=== PATIENT | female | born 1970 | race Caucasian/White ===

== ENCOUNTER 2017-09-28 08:47 | Emergency (ER) | payer OTHER ==
[~2017-09-28] VITALS: Ht 170.2 cm; Wt 86.2 kg
[~2017-09-28 08:47] MED LIST: CEFDINIR300 MG PO; KETOROLAC TROME10 MG PO; ZOFRAN4 MG PO
[2017-09-28] MEDS ORDERED: PREDNISONE 20 MG TAB PO ONE (09:45)
[2017-09-28] MEDS ORDERED: KETOROLAC TROMETHAMINE 60 MG/2 ML VIAL IM ONE (09:45)
[2017-09-28 10:40] VITALS: BP 137/82
== END 2017-09-28 10:42 | disposition home or self-care (01) ==
LOC: FSED 08:47
DX: S50.02XA Contusion of left elbow, initial encounter (principal); S60.212A Contusion of left wrist, initial encounter; W22.09XA Striking against other stationary object, initial encounter; Y92.008 Other place in unspecified non-institutional (private) residence as the place of occurrence of the external cause
CPT/HCPCS: 73080; 73110; 99283; J1885

== ENCOUNTER 2019-03-09 10:29 | Emergency (ER) | payer OTHER ==
[~2019-03-09] VITALS: Ht 167.6 cm; Wt 90.7 kg
[2019-03-09] MEDS ORDERED: KETOROLAC TROMETHAMINE 30 MG/ML VIAL IM STA (11:00)
[2019-03-09 12:37] VITALS: BP 128/68
== END 2019-03-09 12:39 | disposition home or self-care (01) ==
LOC: FSED 10:29
DX: G44.211 Episodic tension-type headache, intractable (principal); I10 Essential (primary) hypertension
CPT/HCPCS: 80048; 80076; 85025; 99283; J1885

== ENCOUNTER 2022-02-14 08:03 | Emergency (ER) | payer OTHER ==
[~2022-02-14] VITALS: Ht 167.6 cm; Wt 91.0 kg
[2022-02-14] MEDS ORDERED: LISINOPRIL10 MG PO (08:22)
[2022-02-14] MEDS ORDERED: ACETAMINOPHEN 325 MG TAB PO ONE (08:30)
[2022-02-14] MEDS ORDERED: IBUPROFEN 600 MG TAB PO ONE (08:30)
[2022-02-14] MEDS ORDERED: DEXAMETHASONE SOD PHOS INJ 4 MG/ML SDV IM ONE (08:30)
[2022-02-14] MEDS ORDERED: DEXAMETHASONE SOD PHOS INJ 4 MG/ML SDV ONE (08:46)
[2022-02-14] MEDS ORDERED: IBUPROFEN 600 MG TAB ONE (08:47)
[2022-02-14] MEDS ORDERED: PREDNISONE50 MG PO (09:25)
[2022-02-14] MEDS ORDERED: IBUPROFEN200 MG PO (09:25)
[2022-02-14] MEDS ORDERED: ZANAFLEX4 MG PO (09:25)
[2022-02-14] MEDS ORDERED: ACETAMINOPHEN500 MG PO (09:25)
[2022-02-14] MEDS ORDERED: HYDROCODONE/APAP 5MG-325MG TAB PO ONE (09:30)
== END 2022-02-14 09:56 | disposition home or self-care (01) ==
LOC: FSED 08:28
DX: M54.41 Lumbago with sciatica, right side (principal); I10 Essential (primary) hypertension
CPT/HCPCS: 72131; 96372; 99283; J1100

== ENCOUNTER 2022-03-26 16:18 | Observation (INO) | payer OTHER ==
[~2022-03-26] VITALS: Ht 167.6 cm; Wt 97.1 kg
[~2022-03-26 16:18] MED LIST changes: +ACETAMINOPHEN500 MG PO; +IBUPROFEN200 MG PO; +LISINOPRIL10 MG PO; +PREDNISONE50 MG PO; +ZANAFLEX4 MG PO
[2022-03-26] MEDS ORDERED: IBUPROFEN 600 MG TAB PO ONE (16:37)
[2022-03-26] MEDS ORDERED: ACETAMINOPHEN 325 MG TAB PO ONE (16:37)
[2022-03-26] MEDS ORDERED: IBUPROFEN 600 MG TAB ONE (16:56)
[2022-03-26] MEDS ORDERED: ACETAMINOPHEN 325 MG TAB ONE (16:56)
[2022-03-26] MEDS ORDERED: PIPERACILLIN/TAZOBACTAM 3.375 GM VIAL ONE (17:39)
[2022-03-26] MEDS ORDERED: KETOROLAC TROMETHAMINE 30 MG/ML VIAL IV STA (18:21)
[2022-03-26] MEDS ORDERED: IOPAMIDOL 370 MG/ML 100 ML INFUS..BTL INJ ONE (18:23)
[2022-03-26] MEDS ORDERED: SODIUM CHLORIDE 0.9% 1000ML 1,000 ML IV ONE (18:30)
[2022-03-26] MEDS ORDERED: KETOROLAC TROMETHAMINE 30 MG/ML VIAL ONE (18:31)
[2022-03-26 20:00] VITALS: BP 119/74
[2022-03-26 22:18] VITALS: BP 119/74
[2022-03-26] MEDS ORDERED: DEXAMETHASONE PHOS 4MG/ML 5ML MULTIDOSE VIAL IV ONE (23:00)
[2022-03-26] MEDS: LISINOPRIL 10 MG TAB PO SCH (23:00)
[2022-03-27] VITALS: BP 101/70
[2022-03-27] MEDS ORDERED: SODIUM CHLORIDE 0.9% 100 ML ONE (00:51)
[2022-03-27] MEDS ORDERED: DEXAMETHASONE SOD PHOS INJ 4 MG/ML SDV IV ONE (01:45)
[2022-03-27 02:41] LABS: CREATINE KINASE MB 0.9 ng/mL (0-5.0)
[2022-03-27 04:00] VITALS: BP 126/54
[2022-03-27 07:05] LABS: BASOPHILS # (AUTO) 0.1 (0.0-0.1); EOSINOPHILS % 0.5 % (0.0-6.0); HEMOGLOBIN 12.6 g/dL (12.0-16.0); LYMPHOCYTES # (AUTO) 0.8 (1.0-3.2); LYMPHOCYTES % 10.9 % (18.0-39.1); MEAN CORPUSCULAR HEMOGLOBIN 28.4 pg (28-32); MEAN CORPUSCULAR HGB CONC 33.2 g/dL (31-35); MEAN CORPUSCULAR VOLUME 85.8 fL (81-99); MONOCYTES # (AUTO) 0.6 (0.2-0.8); MONOCYTES % 8.6 % (4.4-11.3); NEUTROPHILS # (AUTO) 5.8 (2.1-6.9); PLATELET COUNT 333 x10e3/uL (140-360); RED BLOOD COUNT 4.43 x10e6/uL (3.6-5.1); RED CELL DISTRIBUTION WIDTH 12.6 % (11.7-14.4)
[2022-03-27 07:26] LABS: ALANINE AMINOTRANSFERASE 31 IU/L (0-55); ALBUMIN/GLOBULIN RATIO 1.4 (0.8-2.0); ALKALINE PHOSPHATASE 66 IU/L (40-150); ANION GAP 15.2 mmol/L (8-16); BLOOD UREA NITROGEN 11 mg/dL (7-26); BUN/CREATININE RATIO 12 (6-25); CALCIUM 9.2 mg/dL (8.4-10.2); CARBON DIOXIDE 23 mmol/L (22-29); CHLORIDE 107 mmol/L (98-107); GLUCOSE 139 mg/dL (74-118); POTASSIUM 4.2 mmol/L (3.5-5.1); SODIUM 141 mmol/L (136-145)
[2022-03-27 08:03] VITALS: BP 117/70
[2022-03-27 08:32] VITALS: BP 117/70
[2022-03-27] MEDS: LISINOPRIL 10 MG TAB PO SCH (08:59)
[2022-03-27] MEDS ORDERED: PAXLOVID 300-11 EACH PO (09:04)
[2022-03-27] MEDS ORDERED: BROMFED DM COU118 ML PO (09:04)
[2022-03-27] MEDS ORDERED: AZITHROMYCIN250 MG PO (09:04)
[2022-03-27 10:22] LABS: CREATINE KINASE 191 IU/L (29-168)
[2022-03-27] MEDS ORDERED: DEXAMETHASONE SOD PHOS 10 MG/1 ML VIAL IV SCH (17:00)
== END 2022-03-27 10:50 | disposition home or self-care (01) ==
LOC: FSED 16:30 → ERHOLD 17:19 → INTOOBSV 17:19 → MED/SURG3 20:23
PROVIDERS: ADMIT Internal Medicine; ATTEND Internal Medicine
DX: U07.1 COVID-19 (principal); J12.82 Pneumonia due to coronavirus disease 2019; I10 Essential (primary) hypertension; Z68.34 Body mass index [BMI] 34.0-34.9, adult; E66.09 Other obesity due to excess calories
CPT/HCPCS: 36415; 71260; 80053; 82550; 82553; 83518; 83735; 84484; 85025; 87400; 93005; 94799; 96375; 99284; G0378 ×2; J1100; J1885; J2543 ×2; J7050; Q9967; U0002